=== PATIENT | female | born 1945 | race Caucasian/White ===

== ENCOUNTER 2020-11-02 14:10 | Emergency (ER) | payer OTHER, MEDICARE ==
[~2020-11-02] VITALS: Ht 160 cm; Wt 106.6 kg
[2020-11-02 14:10] VITALS: BP_SYST 114
--- NOTE | 2020-11-02 14:10 | NUR ---
BROUGHT IN BY [facility], TRIAGED AND PLACED IN BED #5. REPORT GIVEN TO ROE
--- NOTE | 2020-11-02 14:15 | NUR ---
Pt brought by ambulance, A&Ox3 at this time, per paramedics pt fell while doing yard work and she was on the floor for aprox 2 hours, pt was confused when ambulance arrived, skin tear tnoted on R upper arm, pt c/o generalized body pain, respirations even and unlabored, cap refill <3, will cont to monitor.
--- NOTE | 2020-11-02 14:20 | NUR ---
Dr Monson evaluating patient at bedside
[2020-11-02] MEDS ORDERED: NACL 0.9% 1,000 ML IV ONE (14:30)
[2020-11-02 14:55] LABS: BASOPHILS # (AUTO) 0.1 K/uL (0.0-0.2); BASOPHILS % (AUTO) 1.2 % (0.0-2.0); EOSINOPHILS # (AUTO) 0.1 K/uL (0.0-0.4); EOSINOPHILS % (AUTO) 1.6 % (0.0-4.0); HEMOGLOBIN 13.5 g/dL (12.0-16.0); MEAN CORPUSCULAR HEMOGLOBIN 32 pg (27-31); MEAN CORPUSCULAR HGB CONC 34 % (32-36); MEAN CORPUSCULAR VOLUME 94 fL (79.0-98.0); MONOCYTES # (AUTO) 0.7 K/uL (0.0-1.0); MONOCYTES % (AUTO) 8.2 % (1.7-9.3); NEUTROPHILS # (AUTO) 5.7 K/uL (1.8-7.7); PLATELET COUNT (AUTO) 195 K/uL (130-430); RED BLOOD CELL COUNT(AUTO) 4.26 MIL/uL (4.2-6.2); RED CELL DISTRIBUTION WIDTH 14.8 % (9.0-15.0); WHITE BLOOD COUNT (AUTO) 8.6 K/uL (4.8-10.8)
--- NOTE | 2020-11-02 15:00 | NUR ---
CALM, ALERT, CLEAR MENTATION AND SPEECH, C/O LBP/ HX OF LBP
[2020-11-02 15:05] LABS: ANION GAP 9 (5-15); CALCIUM 8.9 mg/dL (8.4-11.0); CHLORIDE 101 mmol/L (98-107); CREATININE 1.06 mg/dL (0.55-1.30); GLUCOSE 84 mg/dL (70-99); SODIUM SERUM 140 mmol/L (136-145); UREA NITROGEN, BLOOD 22 mg/dL (8-21)
[2020-11-02 15:14] LABS: ALANINE AMINOTRANSFERASE 25 U/L (12-78); ALBUMIN 3.3 g/dL (3.4-4.8); ASPARTATE AMINOTRANSFERASE 22 U/L (10-37); PHOSPHORUS 2.7 mg/dL (2.7-4.5); TOTAL BILIRUBIN 0.5 mg/dL (0.0-1.0)
--- NOTE | 2020-11-02 15:15 | NUR ---
DAUGHTER AT BEDSIDE, PT TOSHIA, ALERT, NO DISTRESS
[2020-11-02] MEDS ORDERED: POTASSIUM CHLORIDE 20 MEQ TAB.PRT.SR PO ONE (16:00)
[2020-11-02 16:16] VITALS: BP_SYST 115
--- NOTE | 2020-11-02 16:17 | NUR ---
Patient given written and verbal discharge instructions and verbalizes understanding. ER MD discussed with patient the results and treatment provided. Patient in stable condition. ID arm band removed. IV catheter removed intact and dressing applied, no active bleeding. Patient educated on pain management and to follow up with PMD. Pain Scale 0/10 Opportunity for questions provided and answered.
== END 2020-11-02 16:17 | disposition home or self-care (01) ==
LOC: SED 14:10
DX: T67.5XXA Heat exhaustion, unspecified, initial encounter (principal); I10 Essential (primary) hypertension; X30.XXXA Exposure to excessive natural heat, initial encounter; Y93.89 Activity, other specified; Y92.89 Other specified places as the place of occurrence of the external cause; Y99.8 Other external cause status
CPT/HCPCS: 36415; 80053; 82550; 82962; 83735; 84100; 84484; 85025; 93005; 96360; 99284; J7030